=== PATIENT | female | born 1995 | race Hispanic/Latino ===

== ENCOUNTER 2019-11-17 14:21 | Inpatient (IN) | payer MEDICAID ==
[~2019-11-17] VITALS: Ht 154.9 cm; Wt 86.2 kg
[2019-11-17] MEDS ORDERED: LACTATED RINGERS 1000ML 1,000 ML IV PRN (14:49)
[2019-11-17] MEDS ORDERED: AMPICILLIN 2GM+NS 100ML 100 ML IV SCH (15:00)
[2019-11-17] MEDS ORDERED: MISOPROSTOL 100 MCG TABLET VG PRN (15:00)
[2019-11-17 15:19] LABS: HEMATOCRIT 32.3 % (36-48); MEAN CORPUSCULAR HEMOGLOBIN 27.2 pg (27.0-33.0); MEAN CORPUSCULAR HGB CONC 31.9 g/dL (32.0-36.0); MEAN CORPUSCULAR VOLUME 85.4 fL (79-99); PLATELET COUNT (AUTO) 165 K/uL (130-400); RED BLOOD CELL COUNT(AUTO) 3.78 MIL/uL (4.00-5.50); RED CELL DISTRIBUTION WIDTH 13.8 % (11.0-15.5); WHITE BLOOD COUNT (AUTO) 10.5 K/uL (4.8-10.8)
[2019-11-17 15:24] LABS: APPEARANCE,URINE Clear (CLEAR); BILIRUBIN,URINE Negative (NEGATIVE); COLOR,URINE Yellow (YELLOW); GLUCOSE, URINE (UA) Negative (NEGATIVE); KETONES,URINE Negative (NEGATIVE); LEUKOCYTE ESTERASE ,URINE Trace (NEGATIVE); NITRATE,URINE Negative (NEGATIVE); OCCULT BLOOD,URINE Negative (NEGATIVE); PROTEIN,URINE Negative (NEGATIVE)
[2019-11-17 15:44] LABS: RBC,URINE 0-1 /HPF (0-1)
[2019-11-17] MEDS ORDERED: MISOPROSTOL 25 MCG TABLET VG PRN (15:45)
[2019-11-17 15:46] LABS: BACTERIA,URINE Few /HPF (None Seen); SQUAMOUS EPITHELIAL CELL,UR Few /HPF (0-2)
[2019-11-17] MEDS ORDERED: GLYB5TAB8 PO (19:21)
[2019-11-17 19:22] VITALS: BP 117/74
[2019-11-17] MEDS: AMPICILLIN 1GM+NS 50ML 50 ML IV SCH (19:57)
[2019-11-18] MEDS: AMPICILLIN 1GM+NS 50ML 50 ML IV SCH ×3 (00:40→08:09)
[2019-11-18] MEDS ORDERED: OXYTOCIN 10 USP UNITS/ML 20 UNIT in LACTATED RINGERS 1000ML 1,000 ML IV SCH ×2 (04:00→05:00)
[2019-11-18] MEDS ORDERED: ROPIVACAINE 0.2% 100ML VIAL 100 ML EP SCH (07:30)
[2019-11-18] MEDS ORDERED: EPHEDRINE SULFATE 50 MG/ML AMPULE IVP PRN (07:30)
[2019-11-18] MEDS ORDERED: PROMETHAZINE HCL 25 MG/ML 1ML AMPULE IM SCH ×2 (07:30→14:45)
[2019-11-18] MEDS ORDERED: NALOXONE HCL 0.4 MG/1 ML ML IV PRN (07:30)
[2019-11-18] MEDS ORDERED: LACTATED RINGERS 500 ML 500 ML IV PRN (07:30)
[2019-11-18] MEDS ORDERED: MEPERIDINE-PF 50 MG/ML SYG IVP SCH (07:30)
[2019-11-18 09:57] LABS: RAPID PLASMA REAGIN NONREACTIVE (NONREACTIVE)
[2019-11-18] MEDS ORDERED: LIDOCAINE HCL 1% 20 ML VIAL INJ PRN (10:00)
--- NOTE | 2019-11-18 14:14 | NUR ---
given 25mg Demerol IV and 12.5mg Phenergan for half dose since delivery is imminent
[2019-11-18] MEDS ORDERED: MEPERIDINE-PF 50 MG/ML SYG IVP ONE (14:45)
[2019-11-18] MEDS: OXYTOCIN-LR 20 UNITS/1000 ML 1,000 ML IV SCH ×2 (15:24→18:09)
[2019-11-18] MEDS ORDERED: MEASLES/MUMPS/RUBELLA VACCINE, LIVE 0.5 ML/VIAL SQ PRN (16:00)
[2019-11-18] MEDS ORDERED: IBUPROFEN 600 MG TABLET PO PRN (16:00)
[2019-11-18] MEDS ORDERED: ACETAMINOPHEN 325 MG TAB PO PRN (16:00)
[2019-11-18] MEDS ORDERED: ACETAMINOPHEN-CODEINE 300/30MG TAB PO PRN (16:00)
[2019-11-18] MEDS ORDERED: DIPH,PERTUSS(ACELL),TET VAC/PF 0.5 ML VIAL IM PRN (16:00)
[2019-11-18] MEDS ORDERED: WITCH HAZEL 1 PAD TP PRN (16:00)
[2019-11-18] MEDS ORDERED: BENZOCAINE/LANOLIN/ALOE VERA 60 ML AEROSOL TP PRN (16:00)
[2019-11-18] MEDS ORDERED: LANOLIN 30GM OINTMENT TP PRN (16:00)
[2019-11-18] MEDS ORDERED: AMPICILLIN 2GM+NS 100ML 100 ML IV SCH (16:15)
[2019-11-18 17:46] VITALS: BP 118/72
[2019-11-18] MEDS ORDERED: OXYTOCIN-LR 20 UNITS/1000 ML 1,000 ML IV ONE (18:08)
[2019-11-18 19:52] VITALS: BP 107/56
[2019-11-18] MEDS: DOCUSATE SODIUM 100 MG CAP PO SCH (20:55)
[2019-11-18 23:51] VITALS: BP 109/51
[2019-11-19 03:52] VITALS: BP 103/50
[2019-11-19 05:54] LABS: HEMATOCRIT 24.5 % (36-48); MEAN CORPUSCULAR HEMOGLOBIN 27.5 pg (27.0-33.0); MEAN CORPUSCULAR HGB CONC 32.2 g/dL (32.0-36.0); MEAN CORPUSCULAR VOLUME 85.4 fL (79-99); PLATELET COUNT (AUTO) 147 K/uL (130-400); RED BLOOD CELL COUNT(AUTO) 2.87 MIL/uL (4.00-5.50); RED CELL DISTRIBUTION WIDTH 13.9 % (11.0-15.5); WHITE BLOOD COUNT (AUTO) 14.4 K/uL (4.8-10.8)
--- NOTE | 2019-11-19 06:50 | NUR ---
PROVIDER NOTIFIED Francois VINSON CNM NOTIFIED VIA TELEPHONE OF PATIENT HGB OF 7.9, PROVIDER STATED SHE WILL BE BY TO SEE PATIENT
[2019-11-19 07:22] VITALS: BP 103/62
[2019-11-19] MEDS: DOCUSATE SODIUM 100 MG CAP PO SCH (09:01)
[2019-11-19 11:19] VITALS: BP 90/47
[2019-11-19 16:20] VITALS: BP 129/77
--- NOTE | 2019-11-19 17:00 | NUR ---
DISCHARGE PT LEFT UNIT VIA WHEELCHAIR, WITH BABY IN ARMS, ACCOMPANIED BY SIGNIFICANT OTHER. DENIED PAIN AND HAD NO COMPLAINTS. BABY STRAPPED IN CAR SEAT. PT AND BABY TRANSPORTED BY PERSONAL VEHICLE.
[2019-11-20 07:13] LABS: HEPATITIS Bs ANTIGEN SCREEN P Negative (Negative)
== END 2019-11-19 17:00 | disposition home or self-care (01) | DRG 560 ==
LOC: EDH 14:21 → OBSVTOIN 14:22 → LDH 14:22 → WSH 11-18 17:38
PROVIDERS: ADMIT Obstetrics & Gynecology; ATTEND Obstetrics & Gynecology
PROC: 10E0XZZ Delivery of Products of Conception, External Approach (ICD-10-PCS; principal; 2019-11-18)
PROC: 0W8NXZZ Division of Female Perineum, External Approach (ICD-10-PCS; 2019-11-18)
PROC: 3E0234Z Introduction of Serum, Toxoid and Vaccine into Muscle, Percutaneous Approach (ICD-10-PCS; 2019-11-18)
PROC: 3E0134Z Introduction of Serum, Toxoid and Vaccine into Subcutaneous Tissue, Percutaneous Approach (ICD-10-PCS; 2019-11-18)
PROC: 10907ZC Drainage of Amniotic Fluid, Therapeutic from Products of Conception, Via Natural or Artificial Opening (ICD-10-PCS; 2019-11-18)
DX: O99.824 Streptococcus B carrier state complicating childbirth (principal); Z37.0 Single live birth; Z23 Encounter for immunization; Z3A.38 38 weeks gestation of pregnancy
CPT/HCPCS: 36415; 81001; 82947; 85027; 86592; 86701; 86850; 86900; 86901; 87340; 87390; A4351; G0378; J0290; J2175; J2550; J2590; J7120